=== PATIENT | male | born 1970 | race Caucasian/White ===

== ENCOUNTER → 2023-05-25 10:11 | Outpatient (CLI) | payer OTHER, SELFPAY ==
[2023-05-25 11:07] LABS: Hematocrit 48.2 % (41-53); Hemoglobin 16.7 g/dL (13.5-17.5); Mean Corpuscular HGB Conc 34.6 % (30-36); Mean Corpuscular Hemoglobin 33.1 PG (26-34); Mean Corpuscular Volume 95.6 fL (80-100); Platelet Count 226 X10^3/uL (150-400); Red Blood Cell Count 5.04 X10^6/uL (4.5-5.9); Red Cell Distribution Width 13.1 % (11.6-14.8); White Blood Cell Count 5.6 X10^3/uL (4.5-11.0)
[2023-05-25 11:22] LABS: Alanine Aminotransferase 20 IU/L (<50); Albumin 4.1 g/dL (3.5-5.0); Albumin Globulin Ratio 1.4 (1.0-2.8); Alkaline Phosphatase 56 U/L (38-126); Aspartate Aminotransferase 24 IU/L (17-59); BUN Creatinine Ratio 11.7 (6-22); Bilirubin Total 0.9 mg/dL (0.2-1.3); Blood Urea Nitrogen 14 mg/dL (9-20); Calcium 9.2 mg/dL (8.4-10.2); Carbon Dioxide 31 mmol/L (22-32); Chloride 103 mmol/L (98-107); Cholesterol 189 mg/dL (140-199); Estimated Glomerular Filt Rate > 60 mL/min (>60); Globulin 2.9 g/dL (1.7-4.1); Glucose 96 mg/dL (70-100); HDL Cholesterol 46 mg/dL (40-60); HEMOLYSIS < 15 (0-50); LDL Cholesterol Calculated 111 mg/dL (<100); Potassium 4.7 mmol/L (3.4-5.1); Sodium 139 mmol/L (137-145); Triglycerides 162 mg/dL (35-150)
[2023-05-25 11:50] LABS: Prostate Specific Antigen Scrn 1.77 ng/mL (0.1-4.0)
[2023-05-25 11:51] LABS: TSH w/ Reflex to FT4 1.77 uIU/mL (0.47-4.68)
== END ==
PROVIDERS: PCP Internal Medicine; Referring Provider Internal Medicine; Visit Provider Internal Medicine
DX: M45.9 Ankylosing spondylitis of unspecified sites in spine (principal); Z00.00 Encounter for general adult medical examination without abnormal findings; Z12.5 Encounter for screening for malignant neoplasm of prostate
CPT/HCPCS: 36415; 80053; 80061; 84443; 85027; G0103

== ENCOUNTER 2024-02-20 12:46 | Day surgery (SDC) | payer OTHER, SELFPAY ==
--- NOTE | 2024-02-20 | PATH_ITS ---
[facility] Accession Number: [id number] No. of containers..03 Tissue . 01 Material submitted: . PART A: rectum - RECTAL POLYP PART B: colon - ASCENDING COLON POLYP PART C: colon - DESCENDING COLON POLYP . 01 Diagnosis: A. RECTAL POLYP: Colonic mucosa with focal mucosal hyperplasia. Negative for dysplasia and malignancy. . B. ASCENDING COLON POLYP: Tubular adenoma. . C. DESCENDING COLON POLYP: Tubular adenoma. MRV 02/23/2024 1634 Local . 01 Electronically signed: . Forest Sumner MD, PhD, Pathologist NPI- [id number] . 01 Gross description: . A. Received in formalin with two identifiers and rectal polyp, are two marcus soft tissue fragments measuring 0.4 to 0.3 cm. Submitted entirely in A1. B. Received in formalin with two identifiers and ascending colon polyp, are multiple marcus soft tissue fragments aggregating to 0.6 x 0.3 x 0.1 cm. Filtered and submitted entirely in B1. C. Received in formalin with two identifiers and descending colon polyps, are two marcus soft tissue fragments, 0.4 to 0.2 cm in greatest dimension. Submitted entirely in C1. ([id number]) /MRV 02/22/2024 1817 Local . 01 Pathologist provided ICD-10: D12.2, D12.4 . 01 CPT . 898250, 236995, 641981 Specimen Comment: A courtesy copy of this report has been sent to [phone] Performed at: [address] [facility] [address], [place], [place] [id number] MD Jordy Reyna MD Phone: [phone]
[2024-02-20 13:42] VITALS: BP 121/74; PULSE 63; RESP 18; TEMP 36.7; O2SAT 98
--- NOTE | 2024-02-20 14:23 | PM.HP.1 ---
History of Present Illness History of Present Illness Date Patient Seen: 02/20/24 Time Patient Seen: 14:23 Chief complaint: Screening Colonoscopy Narrative: 53-year-old man here for 1st time screening colonoscopy. No family history of intestinal malignancy. No abdominal concerns today [facility] Medical History HSV-2 (herpes simplex virus 2) infection Ankylosing spondylitis Autism ADHD Chronic back pain Tinnitus Herpes (~2007) Surgical History Anesthesia History of hernia repair (~1998) Social History details: , retired [employer], [employer] Smoking Status: Never smoker alcohol intake: current Meds Home Medications and Allergies Home Medications Medication Instructions Recorded Confirmed Type piroxicam 10 mg capsule (Feldene) 10 mg PO DAILY PRN pain #30 caps 05/25/23 02/20/24 Rx valacyclovir 500 mg tablet 500 mg PO BID #10 tabs 05/25/23 02/20/24 Rx adalimumab 40 mg/0.8 mL 40 mg (0.8 mL) SUBCUT Q2W #6 ea 11/20/23 02/20/24 Rx subcutaneous pen kit (Humira Pen) ibuprofen 800 mg tablet 800 mg PO BID PRN pain #180 tabs 01/23/24 02/20/24 Rx sildenafil 100 mg tablet 100 mg PO DAILY PRN sexual 01/23/24 02/20/24 Rx activity #30 tabs dextroamphetamine-amphetamine 10 1 tab PO 3XD 02/20/24 02/20/24 History mg tablet (Adderall) Allergies Allergy/AdvReac Type Severity Reaction Status Date / Time No Known Drug Allergies Allergy Verified 02/20/24 13:34 Exam Vital Signs (past 8 hours): - 02/20/24 13:42 Temperature 98.1 F Pulse Rate 63 Respiratory Rate 18 Blood Pressure 121/74 Pulse Oximetry 98 Oxygen Delivery Method Room Air Oxygen Delivery Method Room Air Narrative Exam Narrative: General adult man alert oriented no acute distress Chest nonlabored respiration Extremities warm well perfused Assessment & Plan Assessment & Plan narrative: The patient requires colorectal screening and colonoscopy is recommended. Technical details were discussed. Risks, benefits, alternatives explained. Risks including but not limited to myocardial infarction, aspiration, bleeding, pain, missed lesion, incomplete examination, need for further radiographic studies, intestinal injury, and need for major abdominal surgery were discussed. All questions were answered to their satisfaction, and they are in agreement with this plan.
[2024-02-20 14:59] VITALS: BP 97/63; PULSE 62; RESP 11; TEMP 36.2; O2SAT 95
[2024-02-20 15:05] VITALS: BP 99/63; PULSE 59; RESP 14; O2SAT 95
--- NOTE | 2024-02-20 15:05 | P.OP.COLON_ITS ---
Operative Date/Time/Diagnoses Date of procedure: 02/20/24 Time of procedure: 15:05 Pre-op diagnosis: Colorectal screening Post-op diagnosis: other (Colonic polyps x3) Procedure & Clinicians Study performed: Colonoscopy with polypectomy Same procedure as scheduled: Yes Indications: Colorectal screening Surgeon: Eddie Sorensen Procedure Notes Procedure in detail: The history and physical was performed/updated and the patient is ASA class is 2. The procedure was discussed in detail with the patient. Potential risks complications including infection, bleeding, missed diagnosis, perforation, need for surgery, and were explained. Their questions were answered and informed consent was obtained. Patient was brought to the procedure room and placed standard monitoring equipment. The patient's vital signs were monitored continuously throughout the entire procedure. Prior to starting time-out was performed. The patient was placed in the left lateral recumbent position. Procedural sedation was administered by anesthesia. Examination began with a thorough inspection of the perianal area there was no evidence of fissures, fistulae, external hemorrhoids or cutaneous malignancy. The colonoscopy scope was then placed into the anal canal and was advanced to the cecum, which was identified by the ileocecal valve, the appendiceal orifice and the confluence of the taenia. The scope was then slowly withdrawn examining colon thoroughly in all directions, irrigating it of any residual stool. The scope was retroflexed within the rectum The patient tolerated the procedure well. They will be discharged once criteria are met. The prep was of good/excellent quality. The withdrawl time was 10 minutes. FINDINGS * Ascending colon-3 mm polyp removed with biopsy forceps * Descending colon-3 mm polyp removed with biopsy forceps. Mild diverticulosis * Rectum-1-2 mm polyp removed with biopsy forceps Specimen(s): other (Ascending, descending, rectal polyps) Impression: Colonic polyps x3 Post-procedure Recommendations: High fiber diet Plan for aftercare: Follow-up is dependent on pathology findings Disposition: same day surgery
[2024-02-20 15:10] VITALS: BP 112/74; PULSE 64; RESP 11; TEMP 36.3; O2SAT 96
[2024-02-20 15:12] VITALS: BP 108/69; PULSE 57; RESP 9; O2SAT 96
== END 2024-02-20 16:04 | disposition home or self-care (01) ==
PROVIDERS: PCP Internal Medicine; Referring Provider Surgery; Visit Provider Surgery
PROC: 0DJD8ZZ Inspection of Lower Intestinal Tract, Via Natural or Artificial Opening Endoscopic (ICD-10-PCS; CPT 45378; principal; 2024-02-20 14:30)
DX: Z12.11 Encounter for screening for malignant neoplasm of colon (principal); K57.30 Diverticulosis of large intestine without perforation or abscess without bleeding; K62.1 Rectal polyp; D12.4 Benign neoplasm of descending colon; D12.2 Benign neoplasm of ascending colon
CPT/HCPCS: 45380; J2704

== ENCOUNTER → 2024-08-12 10:58 | Outpatient (CLI) | payer OTHER, SELFPAY ==
[2024-08-12 12:21] LABS: Aspartate Aminotransferase 32 IU/L (17-59); BUN Creatinine Ratio 13.5 (6-22); Blood Urea Nitrogen 15 mg/dL (9-20); Calcium 9.2 mg/dL (8.4-10.2); Carbon Dioxide 31 mmol/L (22-32); Chloride 104 mmol/L (98-107); Cholesterol 176 mg/dL (140-199); Estimated Glomerular Filt Rate > 60 mL/min (>60); Glucose 95 mg/dL (70-100); HDL Cholesterol 52 mg/dL (40-60); HEMOLYSIS < 15 (0-50); LDL Cholesterol Calculated 104 mg/dL (<100); Potassium 4.8 mmol/L (3.4-5.1); Sodium 138 mmol/L (137-145); Triglycerides 98 mg/dL (35-150)
[2024-08-12 12:52] LABS: Prostate Specific Antigen Scrn 1.55 ng/mL (0.1-4.0)
== END ==
PROVIDERS: PCP Internal Medicine; Referring Provider Internal Medicine; Visit Provider Internal Medicine
DX: E78.2 Mixed hyperlipidemia (principal); Z12.5 Encounter for screening for malignant neoplasm of prostate; M54.9 Dorsalgia, unspecified; F90.9 Attention-deficit hyperactivity disorder, unspecified type; B00.9 Herpesviral infection, unspecified; L30.9 Dermatitis, unspecified; M25.562 Pain in left knee; G89.29 Other chronic pain; Z86.0100 Personal history of colon polyps, unspecified
CPT/HCPCS: 36415; 80048; 80061; 84450; G0103

== ENCOUNTER 2024-08-23 23:00 | Emergency (ER) | payer OTHER, SELFPAY ==
[2024-08-23 23:04] VITALS: BP 125/65; PULSE 49; RESP 18; TEMP 36.8; O2SAT 99; BMI 28.5
[2024-08-23] MEDS: ONDANSETRON 4 MG/2 ML INJ IV (23:23)
[2024-08-23] MEDS: KETOROLAC 30 MG/ML VIAL IV (23:24)
[2024-08-23 23:28] LABS: Add Manual Diff / Slide Review NO; Basophils Absolute Auto 100 /uL (0-100); Basophils Percent Auto 0.9 % (0-2); Eosinophils Absolute Auto 300 /uL (0-450); Eosinophils Percent Auto 4.4 % (2-4); Hematocrit 50.8 % (41-53); Hemoglobin 17.4 g/dL (13.5-17.5); Lymphocytes Absolute Auto 3700 /uL (1100-4500); Lymphocytes Percent Auto 47.2 % (25-40); Mean Corpuscular HGB Conc 34.2 % (30-36); Mean Corpuscular Hemoglobin 33.6 PG (26-34); Mean Corpuscular Volume 98.5 fL (80-100); Monocytes Absolute Auto 800 /uL (0-900); Monocytes Percent Auto 10.7 % (3-14); Neutrophils Absolute Auto 2900 /uL (1500-7000); Neutrophils Percent Auto 36.8 % (50-75); Platelet Count 222 X10^3/uL (150-400); Red Blood Cell Count 5.16 X10^6/uL (4.5-5.9); Red Cell Distribution Width 13.3 % (11.6-14.8); White Blood Cell Count 7.8 X10^3/uL (4.5-11.0)
[2024-08-23 23:29] VITALS: BP 141/71; PULSE 52; O2SAT 97
[2024-08-23 23:30] VITALS: BP 130/69; PULSE 52; O2SAT 97
--- NOTE | 2024-08-23 23:36 | ED.BACK ---
HPI - Back Pain/Injury General Chief Complaint: Back Pain/Injury Stated Complaint: Poss Kidney Stone, Lower L Back Px Time Seen by Provider: 08/23/24 23:13 Source: patient Mode of arrival: Ambulatory Limitations: no limitations History of Present Illness HPI Narrative: Patient was a 54-year-old male here for evaluation of left-sided flank pain. He states he was 2 prior kidney stones in the past and this feels very similar to that. No problems urinating. Seven some nausea but no vomiting. No skin changes. No change in bowel habits. He did take some ibuprofen prior to arrival. His prior to stones he was passed on his own. They were sent to the lab and appears to be calcium stones. Related Data Previous Rx's Medication Instructions Recorded piroxicam 10 mg capsule (Feldene) 10 mg PO DAILY PRN pain #30 caps 05/25/23 valacyclovir 500 mg tablet 500 mg PO BID #10 tabs 05/25/23 adalimumab 40 mg/0.8 mL 40 mg (0.8 mL) SUBCUT Q2W #6 ea 11/20/23 subcutaneous pen kit (Humira Pen) ibuprofen 800 mg tablet 800 mg PO BID PRN pain #180 tabs 01/23/24 sildenafil 100 mg tablet 100 mg PO DAILY PRN sexual 01/23/24 activity #30 tabs dextroamphetamine-amphetamine 10 1 tab PO 3XD #90 tabs 08/12/24 mg tablet dextroamphetamine-amphetamine 10 1 tab PO 3XD #90 tabs 08/12/24 mg tablet dextroamphetamine-amphetamine 10 1 tab PO 3XD #90 tabs 08/12/24 mg tablet (Adderall) triamcinolone acetonide 0.1 % 1 applic topical BID #15 grams 08/12/24 topical cream hydrocodone 5 mg-acetaminophen 325 1 tab PO Q4-6H PRN pain #10 tabs 08/24/24 mg tablet ondansetron 4 mg disintegrating 4 mg PO Q6H PRN nausea and 08/24/24 tablet vomiting #10 tabs tamsulosin 0.4 mg capsule (Flomax) 0.4 mg PO DAILY #14 caps 08/24/24 Allergies Allergy/AdvReac Type Severity Reaction Status Date / Time No Known Drug Allergies Allergy Verified 08/12/24 09:55 Review of Systems Review of Systems ROS Unobtainable: All systems reviewed & are unremarkable except as noted in HPI and below Patient History Medical History Eczematous dermatitis History of colonic polyps HSV-2 (herpes simplex virus 2) infection Ankylosing spondylitis Autism ADHD Chronic back pain Tinnitus Herpes (~2007) Surgical History Anesthesia History of hernia repair (~1998) Social History details: , retired [employer], [employer] Smoking Status: Never smoker alcohol intake: current Smoking Status: Never smoker alcohol intake frequency: holidays/special occasions only Substance Use Type: marijuana Exam Initial Vital Signs Initial Vital Signs: Vital Signs Temperature 98.3 F 08/23/24 23:04 Pulse Rate 49 L 08/23/24 23:04 Respiratory Rate 18 08/23/24 23:04 Blood Pressure 125/65 08/23/24 23:04 Pulse Oximetry 99 08/23/24 23:04 Oxygen Delivery Method Room Air 08/23/24 23:04 Const General: cooperative and No ill appearing HENMT Head: normal to inspection and normocephalic Resp Effort & Inspection: normal respiratory effort Cardio Rate: regular rate GI Inspection: normal to inspection and non-distended Neuro General: patient alert and patient awake Course Orders Ordered: ED Orders 08/23/24 23:20 Basic Metabolic Panel Stat Complete Blood Count AUTO DIFF Stat Discontinued Medications Hydrocodone Bitart/Acetaminophen (Hydrocodone/Acet 5/325 Prepack) 1 bottle MISC DIRECTED ONE Stop: 08/24/24 00:18 Last Admin: 08/24/24 00:26 Dose: 1 bottle Documented By: Ketorolac Tromethamine (Ketorolac 30 Mg/Ml Vial) 30 mg IV NOW ONE Stop: 08/23/24 23:15 Last Admin: 08/23/24 23:24 Dose: 30 mg Documented By: Ondansetron HCl (Ondansetron 4 Mg/2 Ml Inj) 4 mg IV NOW ONE Stop: 08/23/24 23:21 Last Admin: 08/23/24 23:23 Dose: 4 mg Documented By: Ondansetron HCl (Ondansetron 4 Mg Odt Prepack) 1 bottle MISC DIRECTED ONE Stop: 08/24/24 00:18 Last Admin: 08/24/24 00:26 Dose: 1 bottle Documented By: Tamsulosin HCl (Tamsulosin 0.4 Mg Capsule) 0.4 mg PO NOW ONE Stop: 08/24/24 00:18 Last Admin: 08/24/24 00:26 Dose: 0.4 mg Documented By: Vital Signs Vital signs: Vital Signs - 8 hr 08/23/24 23:04 08/23/24 23:29 08/23/24 23:29 Temperature 98.3 F Pulse Rate 49 L 52 L Respiratory Rate 18 Blood Pressure 125/65 141/71 H Pulse Oximetry 99 97 Oxygen Delivery Method Room Air 08/23/24 23:30 08/23/24 23:30 08/24/24 00:00 Temperature Pulse Rate 52 L 53 L Respiratory Rate Blood Pressure 130/69 Pulse Oximetry 97 96 Oxygen Delivery Method Room Air Room Air 08/24/24 00:00 Temperature Pulse Rate Respiratory Rate Blood Pressure 123/70 Pulse Oximetry Oxygen Delivery Method MDM - Back Pain/Injury Lab Data Attestation: I reviewed the patient's lab results. 08/23/24 23:20 08/23/24 23:20 Labs: Lab Results 08/23/24 Range/Units 23:20 WBC 7.8 (4.5-11.0) X10^3/uL RBC 5.16 (4.5-5.9) X10^6/uL Hgb 17.4 (13.5-17.5) g/dL Hct 50.8 (41-53) % MCV 98.5 (80-100) fL MCH 33.6 (26-34) PG MCHC 34.2 (30-36) % RDW 13.3 (11.6-14.8) % Plt Count 222 (150-400) X10^3/uL Neut % (Auto) 36.8 L (50-75) % Lymph % (Auto) 47.2 H (25-40) % Bailey % (Auto) 10.7 (3-14) % Eos % (Auto) 4.4 H (2-4) % Baso % (Auto) 0.9 (0-2) % Neut # (Auto) 2900 (8708-0812) /uL Lymph # (Auto) 3700 (4354-7970) /uL Bailey # (Auto) 800 (0-900) /uL Eos # (Auto) 300 (0-450) /uL Baso # (Auto) 100 (0-100) /uL Sodium 140 (137-145) mmol/L Potassium 4.1 (3.4-5.1) mmol/L Chloride 103 (98-107) mmol/L Carbon Dioxide 30 (22-32) mmol/L BUN 17 (9-20) mg/dL Creatinine 1.14 (0.66-1.25) mg/dL Estimated GFR > 60 (>60) mL/min BUN/Creatinine Ratio 14.9 (6-22) Glucose 113 H (70-100) mg/dL Calcium 9.0 (8.4-10.2) mg/dL Urine Dip Bedside Urine Glucose Negative Bedside Urine Bilirubin - Negative Bedside Urine Ketone - Negative Urine Specific [place] 1.020 Bedside Urine Occult Blood - Negative Bedside Urine pH 6.0 Bedside Urine Protein - Negative Bedside Urine Urobilinogen - Negative Bedside Urine Nitrite - Negative Bedside Urine Leukocytes - Negative Esterase MDM Narrative Medical decision making narrative: Patient has a history of stones. He states this feels very similar stones. His urinalysis does not show any signs of infection. Kidney functions unremarkable. Reports improvement of symptoms after Toradol. We discussed options to include presuming that this is stone in avoiding CT scan versus obtaining the CT scan. Discussed risks and benefits of each of these. After discussion we opted not to obtain a scan and proceed with conservative measures. Will send home with pain medication and nausea medication. He was given return precautions and follow-up instructions. He expressed understanding and agreement with plan. Discharge Plan Departure Patient Disposition: Home Clinical Impression: Renal colic on left side Instructions: Kidney Stones -- Adult Activity Restrictions/Additional Instructions: Use the pain medication and nausea medication as directed. Take the Flomax/tamsulosin on a daily basis and to you pass the stone. Return to the emergency department for new or worsening symptoms like we discussed. Prescriptions: New tamsulosin [Flomax] 0.4 mg capsule 0.4 mg PO DAILY Qty: 14 0RF ondansetron 4 mg tablet,disintegrating 4 mg PO Q6H PRN (Reason: nausea and vomiting) Qty: 10 0RF hydrocodone-acetaminophen 5-325 mg tablet 1 tab PO Q4-6H PRN (Reason: pain) Qty: 10 0RF No Action Humira Pen 40 mg/0.8 mL pen injector kit 40 mg SUBCUT Q2W Qty: 6 3RF Rx Instructions: APPROVED- through 11/22/2025. PA#: [id number]. sildenafil 100 mg tablet 100 mg PO DAILY PRN (Reason: sexual activity) Qty: 30 5RF ibuprofen 800 mg tablet 800 mg PO BID PRN (Reason: pain) Qty: 180 0RF piroxicam [Feldene] 10 mg capsule 10 mg PO DAILY PRN (Reason: pain) Qty: 30 3RF valacyclovir 500 mg tablet 500 mg PO BID Qty: 10 5RF dextroamphetamine-amphetamine [Adderall] 10 mg tablet 1 tab PO 3XD Qty: 90 0RF dextroamphetamine-amphetamine 10 mg tablet 1 tab PO 3XD Qty: 90 0RF dextroamphetamine-amphetamine 10 mg tablet 1 tab PO 3XD Qty: 90 0RF triamcinolone acetonide 0.1 % cream 1 applic topical BID Qty: 15 5RF Rx Instructions: 1 gram BID Referrals: Kishan Escoto MD [Primary Care Provider] - Stand Alone Forms: Patient Portal/API/Survey
[2024-08-23 23:38] LABS: BUN Creatinine Ratio 14.9 (6-22); Blood Urea Nitrogen 17 mg/dL (9-20); Carbon Dioxide 30 mmol/L (22-32); Chloride 103 mmol/L (98-107); Estimated Glomerular Filt Rate > 60 mL/min (>60); Glucose 113 mg/dL (70-100); HEMOLYSIS 47 (0-50); Potassium 4.1 mmol/L (3.4-5.1); Sodium 140 mmol/L (137-145)
[2024-08-24] VITALS: BP 123/70; PULSE 53; O2SAT 96
[2024-08-24] MEDS: HYDROCODONE/ACET 5/325 PREPACK 1 BOTTLE MISC (00:26)
[2024-08-24] MEDS: TAMSULOSIN 0.4 MG CAPSULE PO (00:26)
[2024-08-24] MEDS: ONDANSETRON 4 MG ODT PREPACK 1 BOTTLE MISC (00:26)
== END 2024-08-24 00:31 | disposition home or self-care (01) ==
PROVIDERS: Emergency Provider Emergency Medicine; PCP Internal Medicine
DX: N23 Unspecified renal colic (principal); Z87.442 Personal history of urinary calculi
CPT/HCPCS: 36415; 80048; 81003; 85025; 96374; 96375; 99284; J1885; J2405